=== PATIENT | female | born 1950 | race Hispanic/Latino ===

== ENCOUNTER 2017-05-07 09:40 | Day surgery (SDC) | payer BC, MEDICARE ==
[2017-05-04 09:06] VITALS: BMI 24.4
[2017-05-07 10:13] LABS: BASO # 0.09 K/mm3 (0.0-2.0); BASO % 0.6 % (0.0-3.0); EOS # 0.2 (0.0-0.7); EOS % 1.3 % (1.5-5.0); GRAN # 8.15 (1.4-6.5); GRAN % 54.6 % (50.0-68.0); HEMOGLOBIN 14.3 g/dL (12.0-16.0); LYMPH # 5.4 (1.2-3.4); LYMPH % 36.3 % (22.0-35.0); MEAN CELL VOLUME 91.9 fl (80.0-105.0); MEAN CORPUSCULAR HEMOGLOBIN 30.4 pg (25.0-35.0); MEAN CORPUSCULAR HGB CONC 33.1 g/dl (31.0-37.0); MEAN PLATELET VOLUME 10.3 fl (7.0-11.0); MONO # 1.1 (0.1-0.6); MONO % 7.2 % (1.0-6.0); RBC 4.7 10^6/uL (3.5-6.1); RED CELL DISTRIBUTION WIDTH 13.9 % (11.5-14.5); WHITE BLOOD COUNT 14.9 10^3/ul (4.5-11.0)
[2017-05-07 10:22] LABS: BLOOD UREA NITROGEN 16 mg/dL (7-21); CALCIUM 9.5 mg/dL (8.4-10.5); GFR AFRICAN-AMERICAN > 60; GFR NON-AFRICAN AMERICAN 55
[2017-05-07 10:24] LABS: INR 1.01 (0.93-1.08); PARTIAL THROMBOPLASTIN TIME 31.6 Seconds (25.1-36.5); PROTHROMBIN TIME 11.6 SECONDS (9.4-12.5)
[2017-05-07] MEDS ORDERED: Midazolam 2 MG/2 ML VIAL ONE (11:58)
[2017-05-07] MEDS ORDERED: Oxycodone/Acetaminophen 5/325 mg Tab PO PRN (12:56)
[2017-05-07] MEDS ORDERED: Sodium Chloride 0.45% 1,000 ML IV SCH (13:00)
[2017-05-07] MEDS ORDERED: Oxycodone/Acetaminophen 5/325 mg Tab ONE (13:32)
[2017-05-07 14:34] VITALS: O2SAT 96
[2017-05-07 14:55] VITALS: BP 104/63; PULSE 75; RESP 20; TEMP 98
--- NOTE | 2017-05-07 15:09 | US ---
PROCEDURE: Ultrasound-guided left thyroid fine needle aspiration biopsy. CLINICAL HISTORY: Calcified 14 mm dominant left thyroid nodule. Evaluate for malignancy PHYSICIAN(S): Collin Epstein M.D. TECHNIQUE: The relative risks and indications for the procedure were explained to the patient and consent obtained. The patient was placed supine on the stretcher with the neck extended and preliminary sonography of the thyroid performed. This reveal a dominant 14 mm left upper pole nodule with significant rim calcification. The neck was prepped and draped in the usual sterile fashion. Conscious sedation and monitoring were provided throughout the procedure by a nurse. 1% Xylocaine was used to anesthetize the skin and soft tissues at the access site. Three passes with a 22-gauge needle were performed under ultrasound guidance for fine needle aspiration of the calcified 14 mm nodule in the left thyroid. The slides were reviewed by pathology and deemed adequate. The patient tolerated the procedure well. IMPRESSION: 1. Ultrasound guided fine needle aspiration of a 14 mm calcifiednodule in the left thyroid.
== END 2017-05-07 14:45 | disposition home or self-care (01) ==
LOC: SDS 09:40
PROVIDERS: ATTEND Radiology Vascular & Interventional Radiology
DX: E04.1 Nontoxic single thyroid nodule (principal); I10 Essential (primary) hypertension
CPT/HCPCS: 10022; 36415; 80048; 85025; 85610; 85730; 88173; 88305; J2250; J2405; J3010; J7030

== ENCOUNTER 2017-10-15 12:49 | Emergency (ER) | payer BC ==
[2017-10-15 12:50] VITALS: BMI 24.4
[2017-10-15 13:43] VITALS: RESP 18; TEMP 98.5
[2017-10-15] MEDS ORDERED: TDAP Vaccine 0.5 mL Syr IM ONE (14:04)
--- NOTE | 2017-10-15 14:19 | ED PDOC ---
Arrival/HPI - General Chief Complaint: Finger,Hand,&Wrist Time Seen by Provider: 10/15/17 13:55 Historian: Patient - History of Present Illness Narrative History of Present Illness (Text): 10/15/17 14:13 Pt is a 67 yr old female who is asplenic who presents to the ED with a cut to her right thumb on the dorsal side 1 day ago. Pt states that she was using a dirty razor to scrape a surface at home when it slipped and cut her thumb over the joint. Pt reports that it bled for awhile after cleaning it with soap and water then applied a paper towel and duct tape. Pt worries that she needs tetanus and infection as she is prone to infections. Denies fever, chills, loss of motor function or sensation, or any other complaints. Time/Duration: 24 hours Symptom Onset: Sudden Symptom Course: Improving Quality: Unable to Describe Severity Level: 3 Activities at Onset: Rest Context: Home Past Medical History - Provider Review Nursing Documentation Reviewed: Yes - Travel History Have you recently traveled outside [place] w/in the past 3 mons?: No - Cardiac Hx Pacemaker: No - Pulmonary Hx Asthma: No Hx Chronic Obstructive Pulmonary Disease (COPD): No Hx Emphysema: No - Neurological Hx Paralysis: No - Renal Hx Renal Disorder: No - Hematological/Oncological Hx Blood Transfusions: No - Musculoskeletal/Rheumatological Hx Musculoskeletal Disorders: No - Gastrointestinal Hx Gastroesophageal Reflux: No Hx Pancreatitis: Yes - Psychiatric Hx Anxiety: Yes Hx Emotional Abuse: No Hx Physical Abuse: No Hx Substance Use: No - Surgical History Hx Cholecystectomy: Yes Hx Splenectomy: Yes - Anesthesia Hx Anesthesia Reactions: No Hx Malignant Hyperthermia: No - Suicidal Assessment Feels Threatened In Home Enviroment: No Family/Social History - Physician Review Nursing Documentation Reviewed: Yes Family/Social History: Unknown Family HX Smoking Status: Heavy Smoker > 10 Cigarettes Daily Hx Alcohol Use: No Hx Substance Use: No Hx Substance Use Treatment: No Allergies/Home Meds Allergies/Adverse Reactions: Allergies Penicillins Allergy (Severe, Verified 10/15/17 14:00) RASH codeine Adverse Reaction (Severe, Verified 10/15/17 14:00) "JUMPY" tramadol Adverse Reaction (Severe, Verified 10/15/17 14:00) "JUMPY" Home Medications: Home Meds Medication Instructions Recorded Confirmed Amlodipine/Valsartan [Exforge 10 1 tab PO DAILY 06/25/13 05/07/17 mg-160 mg] ALPRAZolam [Xanax] 1 mg PO BID 05/04/17 05/07/17 Ibuprofen [Motrin] 600 mg PO PRN PRN 05/04/17 05/07/17 Review of Systems - Review of Systems Constitutional: Normal Eyes: Normal ENT: Normal Respiratory: Normal Cardiovascular: Normal Gastrointestinal: Normal Genitourinary Female: Normal Musculoskeletal: Normal Skin: Normal, Laceration (right thumb laceration on the dorsal side) Neurological: Normal Endocrine: Normal Hemo/Lymphatic: Normal Psychiatric: Normal Physical Exam Vital Signs Reviewed: Yes Vital Signs Temp Pulse Resp BP Pulse Ox 10/15/17 16:00 68 18 128/68 98 10/15/17 15:16 68 18 118/68 99 10/15/17 13:43 98.5 F 72 18 123/72 99 Temperature: Afebrile Blood Pressure: Normal Pulse: Regular Respiratory Rate: Normal Appearance: Positive for: Well-Appearing, Non-Toxic, Comfortable Pain Distress: None Mental Status: Positive for: Alert and Oriented X 3 - Systems Exam Head: Present: Atraumatic, Normocephalic Pupils: Present: PERRL Extroacular Muscles: Present: EOMI Conjunctiva: Present: Normal Mouth: Present: Moist Mucous Membranes Neck: Present: Normal Range of Motion Respiratory/Chest: Present: Clear to Auscultation, Good Air Exchange. No: Respiratory Distress, Accessory Muscle Use Cardiovascular: Present: Regular Rate and Rhythm, Normal S1, S2. No: Murmurs Abdomen: Present: Normal Bowel Sounds. No: Tenderness, Distention, Peritoneal Signs Back: Present: Normal Inspection Upper Extremity: Present: Normal Inspection, Normal ROM, NORMAL PULSES, Tenderness, Neurovascularly Intact, Capillary Refill < 2s. No: Cyanosis, Edema Lower Extremity: Present: Normal Inspection. No: Edema Neurological: Present: GCS=15, CN II-XII Intact, Speech Normal, Motor Func Grossly Intact, Normal Sensory Function Skin: Present: Warm, Dry, Normal Color, Laceration (right dorsal aspect thumb over carpometacarpal jt approx 1cm). No: Rashes Psychiatric: Present: Alert, Oriented x 3, Normal Insight, Normal Concentration Medical Decision Making ED Course and Treatment: 10/15/17 14:19 Impression Pt is a 67 yr old female who is asplenic who presents to the ED with a cut to her right thumb on the dorsal side 1 day ago. Plan Tetanus and clindamycin PO Lac repair assess and dispo Progress note 10/15/17 14:41 tetanus and cleocin stat lidocaine ordered for infiltration 10/15/17 21:08 lac repair completed with 4 sutures using 4.0 nylon pt tolerated procedure well with minimal blood loss 3 steri strips and dressing placed clindamycin and tetanus booster given advised to have sutures removed in 7 days by PMD or return to ED Take Rx given until complete 10/15/17 21:13 - Medication Orders Current Medication Orders: Discontinued Medications Clindamycin HCl (Cleocin) 300 mg PO STAT STA PRN Reason: Protocol Stop: 10/15/17 14:12 Last Admin: 10/15/17 14:21 Dose: 300 mg Lidocaine HCl (Lidocaine 1% (20ml)) 20 ml IJ STAT STA Stop: 10/15/17 14:41 Last Admin: 10/15/17 14:48 Dose: 20 ml Tetanus/Reduced Diphtheria/Acell Pertussis (Boostrix Vaccine Inj) 0.5 ml IM .ONCE ONE Stop: 10/15/17 14:05 Last Admin: 10/15/17 14:24 Dose: 0.5 ml Immunization Registry Document 10/15/17 14:24 HOLLY (Rec: 10/15/17 14:24 HOLLY [id number]) Immunization Registry Consent Date 06/27/17 - Procedure PROCEDURE NOTE (Text): 10/15/17 14:43 Performed by the emergency provider Location: Left dorsal thumb Length: ~1 cm Description: "clean wound edges and no foreign bodies"} Distal CMS: ~Normal.~ No deficits.~ Neurovascularly intact. Anesthesia: Lidocaine 1% 3cc Preparation: The wound was cleaned with NS and [place]. The area was prepped and draped in the usual sterile fashion.~ Exploration: ~ The wound was explored and no foreign bodies were found. Procedure: The wound was closed with 4.0 nylon.~ There was good approximation.~ In total, 4 were used. Post-Procedure: ~Good closure and hemostasis.~ The patient tolerated the procedure well and there were no complications.~ CSM remains intact.~ Post procedure dressing applied. Disposition/Present on Arrival - Present on Arrival Any Indicators Present on Arrival: Yes History of DVT/PE: No History of Uncontrolled Diabetes: No Urinary Catheter: No History of Decub. Ulcer: No History Surgical Site Infection Following: None - Disposition Have Diagnosis and Disposition been Completed?: Yes Diagnosis: Laceration of thumb without complication Disposition: HOME/ ROUTINE Disposition Time: 15:38 Patient Plan: Discharge Condition: GOOD Discharge Instructions (ExitCare): Wound Care (DC), Laceration Repair With Stitches (DC) Additional Instructions: EMILY LAMBERT, thank you for letting us take care of you today. Your provider was Arcenio Banks DO and SHIMA Mae and you were treated for LACERATON TO THUMB. The emergency medical care you received today was directed at your acute symptoms. If you were prescribed any medication, please fill it and take as directed. It may take several days for your symptoms to resolve. Return to the Emergency Department if your symptoms worsen, do not improve, or if you have any other problems. PLEASE HAVE THE SUTURES REMOVED IN 7-10 DAYS. TAKE CLEOCIN CAPSULES DIRECTED; KEEP THE WOUND CLEAN AND DRY Please contact your doctor or call one of the physicians/clinics you have been referred to that are listed on the Patient Visit Information form that is included in your discharge packet. Bring any paperwork you were given at discharge with you along with any medications you are taking to your follow up visit. Our treatment cannot replace ongoing medical care by a primary care provider outside of the emergency department. Thank you for allowing the [facility] team to be part of your care today. Prescriptions: Clindamycin [Cleocin] 300 mg PO Q6 5 Days #20 cap Forms: [employer] (Kinyarwanda), WORK NOTE
[2017-10-15] MEDS ORDERED: Lidocaine 1% Inj (20ml) IJ STA (14:40)
[2017-10-15 15:17] VITALS: PULSE 68
[2017-10-15 16:15] VITALS: BP 128/68; O2SAT 98
== END 2017-10-15 16:00 | disposition home or self-care (01) ==
LOC: ED 12:49
DX: S61.011A Laceration without foreign body of right thumb without damage to nail, initial encounter (principal); W27.8XXA Contact with other nonpowered hand tool, initial encounter; Y92.009 Unspecified place in unspecified non-institutional (private) residence as the place of occurrence of the external cause; Z23 Encounter for immunization

== ENCOUNTER 2017-11-26 06:05 | Inpatient (IN) | payer BC ==
[2017-11-26 06:05] VITALS: BMI 24.4
[2017-11-26] MEDS ORDERED: Nitroglycerin 50mg in D5W 50 MG/250 ML BOTTLE IV PRN (06:17)
--- NOTE | 2017-11-26 06:18 | ED PDOC ---
Arrival/HPI - General Time Seen by Provider: 11/26/17 06:11 Historian: Patient, EMS - Critical Care Critical Care Minutes: 30 minutes - History of Present Illness Narrative History of Present Illness (Text): 11/26/17 06:09 Ailyn العراقي is a 67 year old female, whose past medical history includes hypertension and tobacco abuse, who presents to the Emergency department brought in by ALS complaining of chest pain. Patient states she was sitting at home playing a game on her phone 2 hours prior to arrival when she began experiencing worsening mid-sternal chest pressure. Patient notified EMS and was given 324 mg Aspirin and nitropaste in the field. Patient reports a family history of CAD and SC. Patient denies any shortness of breath, fever, chills, abdominal pain, or any other complaints. PMD: Dr. Banegas Time/Duration: 1-3 hours (2 hours) Symptom Onset: Sudden Symptom Course: Unchanged Activities at Onset: Light Context: Home Past Medical History - Provider Review Nursing Documentation Reviewed: Yes - Cardiac Hx Pacemaker: No - Pulmonary Hx Asthma: No Hx Chronic Obstructive Pulmonary Disease (COPD): No Hx Emphysema: No - Neurological Hx Paralysis: No - Renal Hx Renal Disorder: No - Hematological/Oncological Hx Blood Transfusions: No - Musculoskeletal/Rheumatological Hx Musculoskeletal Disorders: No - Gastrointestinal Hx Gastroesophageal Reflux: No Hx Pancreatitis: Yes - Psychiatric Hx Anxiety: Yes Hx Emotional Abuse: No Hx Physical Abuse: No Hx Substance Use: No - Surgical History Hx Cholecystectomy: Yes Hx Splenectomy: Yes - Anesthesia Hx Anesthesia Reactions: No Hx Malignant Hyperthermia: No - Suicidal Assessment Feels Threatened In Home Enviroment: No Family/Social History - Physician Review Nursing Documentation Reviewed: Yes Family/Social History: CAD/SC Smoking Status: Heavy Smoker > 10 Cigarettes Daily Hx Alcohol Use: No Hx Substance Use: No Hx Substance Use Treatment: No Allergies/Home Meds Allergies/Adverse Reactions: Allergies Penicillins Allergy (Severe, Verified 11/26/17 06:08) RASH codeine Adverse Reaction (Severe, Verified 11/26/17 06:08) "JUMPY" tramadol Adverse Reaction (Severe, Verified 11/26/17 06:08) "JUMPY" Home Medications: Home Meds Medication Instructions Recorded Confirmed Amlodipine/Valsartan [Exforge 10 1 tab PO DAILY 06/25/13 11/26/17 mg-160 mg] ALPRAZolam [Xanax] 1 mg PO BID 05/04/17 11/26/17 Review of Systems - Physician Review All systems were reviewed & negative as marked: Yes - Review of Systems Constitutional: Normal. absent: Fevers Eyes: Normal ENT: Normal Respiratory: Normal. absent: SOB, Cough Cardiovascular: Chest Pain Gastrointestinal: Normal. absent: Abdominal Pain, Diarrhea, Nausea, Vomiting Genitourinary Female: Normal. absent: Dysuria, Frequency, Hematuria, Urine Output Changes Musculoskeletal: Normal. absent: Back Pain, Neck Pain Skin: Normal. absent: Rash Neurological: Normal. absent: Headache, Dizziness Endocrine: Normal Hemo/Lymphatic: Normal Psychiatric: Normal Physical Exam Vital Signs Reviewed: Yes Vital Signs Temp Pulse Resp BP Pulse Ox 11/26/17 06:34 82 16 136/78 99 11/26/17 06:31 81 140/90 11/26/17 06:28 81 140/90 11/26/17 06:25 69 16 139/106 H 99 11/26/17 06:21 68 16 140/90 100 11/26/17 06:17 93 H 16 114/41 L 100 11/26/17 06:05 97.5 F L 92 H 16 158/121 H 98 Temperature: Afebrile Blood Pressure: Hypertensive Pulse: Regular Respiratory Rate: Normal Appearance: Positive for: Non-Toxic Mental Status: Positive for: Alert and Oriented X 3 - Systems Exam Head: Present: Atraumatic, Normocephalic Pupils: Present: PERRL Extroacular Muscles: Present: EOMI Conjunctiva: Present: Normal Mouth: Present: Moist Mucous Membranes Neck: Present: Normal Range of Motion. No: Meningeal Signs, MIDLINE TENDERNESS , Paraspinal Tenderness Respiratory/Chest: Present: Clear to Auscultation, Good Air Exchange. No: Respiratory Distress, Accessory Muscle Use Cardiovascular: Present: Regular Rate and Rhythm, Normal S1, S2. No: Murmurs Abdomen: No: Tenderness, Distention, Peritoneal Signs Back: Present: Normal Inspection. No: CVA Tenderness, Midline Tenderness, Paraspinal Tenderness Upper Extremity: Present: Normal Inspection. No: Cyanosis, Edema Lower Extremity: Present: Normal Inspection. No: Edema Neurological: Present: GCS=15, CN II-XII Intact, Speech Normal Skin: Present: Warm, Dry, Normal Color. No: Rashes Psychiatric: Present: Alert, Oriented x 3, Normal Insight, Normal Concentration Medical Decision Making ED Course and Treatment: 11/26/17 06:10 Impression: 67 year old female presents to the Emergency department brought in by EMS for mid-sternal chest pressure x2 hours. Plan: -- EKG -- Chest X-ray -- Labs, cardiac enzymes -- Lopressor -- Nitroglycerin -- Reassess and disposition Progress Notes: 11/26/17 06:10 Pt seen on arrival to Emergency department. EKG reviewed, shows NSR at [address] elevation and ST changes inferiorly. Code Heart called, interventionalist paged. 11/26/17 06:13 Case discussed and EKG reviewed with Dr. Hercules, neurosurgery research director communication specialist, who is aware and agrees pt is a Code Heart and requests pt receive Heparin bolus and Brilinta. 11/26/17 06:23 Chest X-ray reviewed, shows no acute processes. 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 11/26/17 06:[address] Banegas, pt's PMD, who is aware and agrees with plan. Accepts pt in to his service. - Lab Interpretations Lab Results: 11/26/17 06:17 11/26/17 06:17 Lab Results 11/26/17 06:17: WBC 16.1 H, RBC 5.11, Hgb 15.8, Hct 44.8, MCV 87.7 D, MCH 30.9 , MCHC 35.3, RDW 13.9, Plt Count 494 H, MPV 10.3 11/26/17 06:17: Sodium 142, Potassium 3.5 L, Chloride 105, Carbon Dioxide 22, Anion Gap 18, BUN 19, Creatinine 1.0, Est GFR ( Amer) > 60, Est GFR (Non- Af Amer) 55, Random Glucose 164 H, Calcium 9.4, Total Bilirubin 0.5, AST 33, ALT 23, Alkaline Phosphatase 106, Lactate Dehydrogenase 410, Total Creatine Kinase 138, Troponin I Pending, Total Protein 9.2 H, Albumin 4.6, Globulin 4.6, Albumin/Globulin Ratio 1.0 L 11/26/17 06:17: PT 11.3, INR 0.98, APTT 29.0 I have reviewed the lab results: Yes - RAD Interpretation Radiology Orders: 11/26/17 06:19 CHEST PORTABLE [RAD] Stat Development Administrator: ED Physician - EKG Interpretation Interpreted by ED Physician: Yes Type: 12 lead EKG - Medication Orders Current Medication Orders: Nitroglycerin/Dextrose (Nitroglycerin 50 Mg/250 Ml D5w) 50 mg in 250 mls @ 6 mls/hr IV .Q24H PRN; Protocol; 20 MCG/MIN PRN Reason: Titrate per protocol Last Admin: 11/26/17 06:28 Dose: 6 mls/hr eMAR Start Stop Document 11/26/17 06:28 LAC (Rec: 11/26/17 06:33 LAC [id number]) Intravenous Solution Start Date 11/26/17 Start Time 06:28 JUN Pulse and Blood Pressure Document 11/26/17 06:28 LAC (Rec: 11/26/17 06:33 LAC [id number]) Pulse Pulse Rate (60-90 beats/min) 81 Blood Pressure Blood Pressure (100/60-150/90 mm Hg) 140/90 Discontinued Medications Heparin Sodium (Porcine) (Heparin) 5,000 units IV ONCE STA PRN Reason: Protocol Stop: 11/26/17 06:17 Last Admin: 11/26/17 06:17 Dose: 5,000 units eMAR Start Stop Document 11/26/17 06:17 LAC (Rec: 11/26/17 06:20 LAC [id number]) Intravenous Solution Start Date 11/26/17 Start Time 06:17 Metoprolol Tartrate (Lopressor) 5 mg IVP STAT STA Stop: 11/26/17 06:21 Last Admin: 11/26/17 06:31 Dose: 5 mg IVP Administration Document 11/26/17 06:31 LAC (Rec: 11/26/17 06:31 LAC [id number]) Charges for Administration # of IVP Administrations 1 MAR Pulse and Blood Pressure Document 11/26/17 06:31 LAC (Rec: 11/26/17 06:31 LAC [id number]) Pulse Pulse Rate (60-90 beats/min) 81 Blood Pressure Blood Pressure (100/60-150/90 mm Hg) 140/90 Ticagrelor (Brilinta) 180 mg PO STAT STA Stop: 11/26/17 06:17 Last Admin: 11/26/17 06:21 Dose: 180 mg - Scribe Statement The provider has reviewed the documentation as recorded by the Joan Cowan Provider Joan Attestation: All medical record entries made by the Joan were at my direction and personally dictated by me. I have reviewed the chart and agree that the record accurately reflects my personal performance of the history, physical exam, medical decision making, and the department course for this patient. I have also personally directed, reviewed, and agree with the discharge instructions and disposition. Disposition/Present on Arrival - Present on Arrival Any Indicators Present on Arrival: No History of DVT/PE: No History of Uncontrolled Diabetes: No Urinary Catheter: No History of Decub. Ulcer: No History Surgical Site Infection Following: None - Disposition Have Diagnosis and Disposition been Completed?: Yes Diagnosis: Acute SC Disposition: HOSPITALIZED Disposition Time: 06:38 Patient Plan: Admission Patient Problems: Current Active Problems Problem Status Onset Acute SC Acute Condition: GUARDED
[2017-11-26] MEDS ORDERED: Phenylephrine 10 mg/ml Inj ONE (06:20)
[2017-11-26] MEDS ORDERED: Metoprolol 1 mg/ml Inj IVP STA (06:20)
[2017-11-26] MEDS ORDERED: Midazolam 2 MG/2 ML VIAL ONE ×2 (06:22→07:12)
[2017-11-26] MEDS ORDERED: Iohexol 350mgl/ml 50 ML ONE (06:23)
[2017-11-26] MEDS ORDERED: Iodixanol 320 MG/ML 100 ML BOTTLE IV ONE (06:23)
[2017-11-26] MEDS ORDERED: Nitroglycerin 50mg in D5W 50 MG/250 ML BOTTLE IV ONE (06:23)
[2017-11-26] MEDS ORDERED: Iodixanol 320 MG/ML 200 ML BOTTLE IV ONE (06:23)
[2017-11-26 06:26] LABS: HEMOGLOBIN 15.8 g/dL (12.0-16.0); MEAN CORPUSCULAR HEMOGLOBIN 30.9 pg (25.0-35.0); MEAN CORPUSCULAR HGB CONC 35.3 g/dl (31.0-37.0); MEAN PLATELET VOLUME 10.3 fl (7.0-11.0); RBC 5.11 10^6/uL (3.5-6.1); RED CELL DISTRIBUTION WIDTH 13.9 % (11.5-14.5); WHITE BLOOD COUNT 16.1 10^3/ul (4.5-11.0)
[2017-11-26 06:30] LABS: INR 0.98; PROTHROMBIN TIME 11.3 SECONDS (9.4-12.5)
[2017-11-26 06:31] LABS: ALBUMIN 4.6 g/dL (3.0-4.8); ALT/SGPT 23 U/L (7-56); AST/SGOT 33 U/L (14-36); BLOOD UREA NITROGEN 19 mg/dL (7-21); CALCIUM 9.4 mg/dL (8.4-10.5); GFR AFRICAN-AMERICAN > 60; GFR NON-AFRICAN AMERICAN 55
[2017-11-26 06:32] LABS: MEAN CELL VOLUME 87.7 fl (80.0-105.0)
[2017-11-26] MEDS ORDERED: Lidocaine PF 2% (5 ml) Inj (For Cardiac Arrhy) ONE (06:37)
--- NOTE | 2017-11-26 06:44 | CP.PCM.PN ---
Subjective - Date & Time of Evaluation Date of Evaluation: 11/26/17 Time of Evaluation: 06:44 Objective - Vital Signs/Intake and Output Vital Signs (last 24 hours): Temp Pulse Resp BP Pulse Ox 97.5 F L 82 16 136/78 99 11/26/17 06:05 11/26/17 06:34 11/26/17 06:34 11/26/17 06:34 11/26/17 06:34 - Medications Medications: Current Medications Nitroglycerin/Dextrose (Nitroglycerin 50 Mg/250 Ml D5w) 50 mg in 250 mls @ 6 mls/hr IV .Q24H PRN; Protocol; 20 MCG/MIN PRN Reason: Titrate per protocol Last Admin: 11/26/17 06:28 Dose: 6 mls/hr - Labs Labs: 11/26/17 06:17 11/26/17 06:17 PT 11.3 SECONDS (9.4-12.5) 11/26/17 06:17 INR 0.98 11/26/17 06:17 APTT 29.0 Seconds (25.1-36.5) 11/26/17 06:17
[2017-11-26] MEDS ORDERED: Eptifibatide 20 mg/10mL Inj IVP ONE (07:27)
[2017-11-26] MEDS ORDERED: Eptifibatide 0.75 mg/ml 75 MG/100 ML BOTTLE IV ONE (07:31)
[2017-11-26] MEDS ORDERED: Sodium Chloride 0.9% 1,000 ML IV SCH (08:15)
[2017-11-26 08:27] LABS: LDL CHOLESTEROL 230 mg/dL (0-129)
[2017-11-26] MEDS ORDERED: Potassium Chloride 20 mEq ER Tab PO STA (08:27)
[2017-11-26 08:28] LABS: HDL CHOLESTEROL 41 mg/dL (29-60)
[2017-11-26 08:44] LABS: PH,URINE 5.5 (4.7-8.0); URINE APPEARANCE CLEAR (CLEAR); URINE BILIRUBIN NEGATIVE (NEGATIVE); URINE BLOOD LARGE (NEGATIVE); URINE COLOR LIGHT YELLOW (YELLOW); URINE GLUCOSE (UA) NEGATIVE (NEGATIVE); URINE LEUKOCYTE ESTERASE NEGATIVE Leu/uL (NEGATIVE); URINE PROTEIN NEGATIVE mg/dL (<30 mg/dL); URINE UROBILINOGEN 0.2 E.U./dL (<1 E.U./dL)
--- NOTE | 2017-11-26 08:45 | CPOSTOP ---
Copied To: Jostin Murry MD Attending MD: Jostin Murry MD DATE: 11/26/2017 CARDIOVASCULAR LAB POST PROCEDURE NOTE DICTATING PHYSICIAN: Jostin Murry MD. DRIVER MANAGER: Issa Tipton. TYPE OF ANESTHESIA: Moderate conscious sedation. Total dose given 2 mg of Versed, 100 of fentanyl. PRE-PROCEDURE DIAGNOSIS: Acute ST-segment myocardial infarction. PROCEDURE PERFORMED: Left heart catheterization, stenting of LAD, stenting of circumflex. FINDINGS: LAD 100% occluded, mid circ 90% proximal, RCA total occluded [employer]. FINAL DIAGNOSIS: Multivessel coronary artery disease. POST PROCEDURE CONDITION: Stable. VASCULAR ACCESS: Right femoral groin. TOTAL RADIATION DOSE: 9997.5 milligray unit. TOTAL FLUORO TIME: 14.6 minutes. Jostin Murry MD MTDJohn
[2017-11-26 09:05] LABS: URINE BACTERIA SMALL (NEG); URINE WBC 0 - 2 /hpf (0-6)
[2017-11-26] MEDS ORDERED: Potassium Chloride 40 mEq/30 ml LIQ UD PO ONE (09:11)
[2017-11-26] MEDS: Lidocaine 5% Patch TD SCH (10:18)
--- NOTE | 2017-11-26 10:56 | RAD ---
Date of service: 11/26/2017 HISTORY: Chest pain COMPARISON: No prior. FINDINGS: LUNGS: No active pulmonary disease. PLEURA: No significant pleural effusion identified, no pneumothorax apparent. CARDIOVASCULAR: No radiographic findings to suggest acute or significant cardiovascular disease. OSSEOUS STRUCTURES: No significant abnormalities. VISUALIZED UPPER ABDOMEN: Normal. OTHER FINDINGS: None. IMPRESSION: No active disease.
--- NOTE | 2017-11-26 11:32 | CARD ---
APPROVED REPORT Date of service: 11/26/2017 EKG Measurement Heart [id number] <Conclusion> Normal sinus rhythm Possible Left atrial enlargement Anterolateral infarct, age Probably Old. Abnormal ECG
--- NOTE | 2017-11-26 11:37 | CP.PCM.CON ---
<ValentinRubén - Last Filed: 11/26/17 15:21> History of Present Illness - History of Present Illness History of Present Illness: ICU consult note: Valentin PGY - 2, IM Resident Reason for consult: Post-catheterization management HPI: 67 year old female with pertinent medical history of significant tobacco abuse presented with chest pain for 2 hours at home. In the ED, EKG showed lateral lead TINY with reciprocal changes in the inferior leads as well as troponin of .5. Patient was taken to [address] with placement of IKE in midCirc and LAD. Patient denies any complaints including chest pain, sob, and cath site tenderness on exam. Review of Systems: 12 point ROS obtained and negative, except as per HPI Surgical History: Patient denies Medical History: HTN, Anxiety Allergies: PCN, Codeine, Tramadol Social History: +Tobacco; +Social alcohol; Denies illicits Home Meds: Reviewed, as per MAR Family History: HTN Past Patient History - Past Social History Smoking Status: Heavy Smoker > 10 Cigarettes Daily - CARDIAC Hx Pacemaker: No - PULMONARY Hx Asthma: No Hx Chronic Obstructive Pulmonary Disease (COPD): No Hx Emphysema: No - NEUROLOGICAL Hx Paralysis: No - RENAL Hx Chronic Kidney Disease: No - HEMATOLOGICAL/ONCOLOGICAL Hx Blood Transfusions: No - MUSCULOSKELETAL/RHEUMATOLOGICAL Hx Musculoskeletal Disorders: No - GASTROINTESTINAL Hx Gastroesophageal Reflux: No Hx Pancreatitis: Yes - PSYCHIATRIC Hx Anxiety: Yes Hx Emotional Abuse: No Hx Physical Abuse: No Hx Substance Use: No - SURGICAL HISTORY Hx Cholecystectomy: Yes Hx Splenectomy: Yes - ANESTHESIA Hx Anesthesia Reactions: No Hx Malignant Hyperthermia: No Meds Allergies/Adverse Reactions: Allergies Allergy/AdvReac Type Severity Reaction Status Date / Time Penicillins Allergy Severe RASH Verified 11/26/17 06:08 codeine AdvReac Severe "JUMPY" Verified 11/26/17 06:08 tramadol AdvReac Severe "JUMPY" Verified 11/26/17 06:08 - Medications Medications: Current Medications Aspirin (Ecotrin) 81 mg PO DAILY [facility] Atorvastatin Calcium (Lipitor) 80 mg PO DIN [facility] Furosemide (Lasix) 40 mg PO DAILY [facility] Last Admin: 11/26/17 10:18 Dose: 40 mg Sodium Chloride (Sodium Chloride 0.9%) 1,000 mls @ 100 mls/hr IV .Q10H JESSICA Stop: 11/26/17 14:00 Last Admin: 11/26/17 08:43 Dose: 100 mls/hr Eptifibatide (Integrilin) 75 mg in 100 mls @ 9.389 mls/hr IV .[id number] [facility]; 2 MCG/KG/MIN PRN Reason: Protocol Stop: 11/27/17 01:30 Lidocaine (Lidoderm) 1 ea TD DAILY [facility] Last Admin: 11/26/17 10:18 Dose: 1 ea Lisinopril (Zestril) 10 mg PO DAILY [facility] Last Admin: 11/26/17 10:20 Dose: 10 mg Metoprolol Tartrate (Lopressor) 25 mg PO BID [facility] Last Admin: 11/26/17 10:19 Dose: 25 mg Nicotine (Nicoderm Cq) 1 patch TD DAILY [facility] Last Admin: 11/26/17 10:18 Dose: 1 patch Spironolactone (Aldactone) 25 mg PO DAILY [facility] Last Admin: 11/26/17 10:19 Dose: 25 mg Ticagrelor (Brilinta) 90 mg PO BID [facility] Physical Exam - Constitutional Appears: Well - Head Exam Head Exam: ATRAUMATIC, NORMAL INSPECTION, NORMOCEPHALIC - Eye Exam Eye Exam: EOMI, Normal appearance, PERRL Pupil Exam: NORMAL ACCOMODATION, PERRL - ENT Exam ENT Exam: Mucous Membranes Moist, Normal Exam - Neck Exam Neck exam: Positive for: Normal Inspection - Respiratory Exam Respiratory Exam: Clear to Auscultation Bilateral, NORMAL BREATHING PATTERN - Cardiovascular Exam Cardiovascular Exam: REGULAR RHYTHM - GI/Abdominal Exam GI & Abdominal Exam: Normal Bowel Sounds, Soft. absent: Tenderness - Extremities Exam Extremities exam: Positive for: normal inspection - Back Exam Back exam: NORMAL INSPECTION - Neurological Exam Neurological exam: Alert, CN II-XII Intact, Normal Gait, Oriented x3, Reflexes Normal - Psychiatric Exam Psychiatric exam: Normal Affect, Normal Mood - Skin Skin Exam: Dry, Intact, Normal Color, Warm Results - Vital Signs Recent Vital Signs: Last Vital Signs Temp 97.5 F L 11/26/17 06:05 Pulse 73 11/26/17 10:20 Resp 16 11/26/17 06:34 BP 119/76 11/26/17 10:20 Pulse Ox 99 11/26/17 06:34 - Labs Result Diagrams: 11/26/17 12:45 11/26/17 12:45 Labs: Laboratory Results - last 24 hr 08/13/18 08:36 Urine Color Light yellow Urine Appearance Clear Urine pH 5.5 Ur Specific [place] <= 1.005 Urine Protein Negative Urine Glucose (UA) Negative Urine Ketones Negative Urine Blood Large H Urine Nitrate Negative Urine Bilirubin Negative Urine Urobilinogen 0.2 Ur Leukocyte Esterase Negative Urine RBC 10 - 15 Urine WBC 0 - 2 Ur Epithelial Cells 3 - 4 Urine Bacteria Small Assessment & Plan - Assessment and Plan (Free Text) Assessment: 67 year old female under ICU mgmt for post-catheterization monitoring 1. Acute NSTEMI 2. Hx tobacco abuse 3. Anxiety Plan Neuro - Maintain normothermia - Continue home dose alprazolam for anxiety Pulm - Nasal cannula 2L PRN for SOB - Maintain sat O2 > 92% Cardio - Continue with SAMIA-I, B-Blockers, Statin, DAPT; discontinue integrillin drip 18 hours after procedure - HHD - Maintain MAP > 65 - Assess pulses, cath site, and vitals as per orders GI - Continue with HHD - Continue with GI PPX - Maintain euvolemia ID - No ABx needed at this time Endo - Maintain euglycemia Heme - Leave DVT PPX up to cardiology <Arcenio Barrera - Last Filed: 11/26/17 15:50> Meds - Medications Medications: Current Medications Aspirin (Ecotrin) 81 mg PO DAILY [facility] Atorvastatin Calcium (Lipitor) 80 mg PO DIN [facility] Furosemide (Lasix) 40 mg PO DAILY [facility] Last Admin: 11/26/17 10:18 Dose: 40 mg Eptifibatide (Integrilin) 75 mg in 100 mls @ 9.389 mls/hr IV .[id number] [facility]; 2 MCG/KG/MIN PRN Reason: Protocol Stop: 11/27/17 01:30 Lidocaine (Lidoderm) 1 ea TD DAILY [facility] Last Admin: 11/26/17 10:18 Dose: 1 ea Lisinopril (Zestril) 10 mg PO DAILY [facility] Last Admin: 11/26/17 10:20 Dose: 10 mg Metoprolol Tartrate (Lopressor) 25 mg PO BID [facility] Last Admin: 11/26/17 10:19 Dose: 25 mg Nicotine (Nicoderm Cq) 1 patch TD DAILY [facility] Last Admin: 11/26/17 10:18 Dose: 1 patch Spironolactone (Aldactone) 25 mg PO DAILY [facility] Last Admin: 11/26/17 10:19 Dose: 25 mg Ticagrelor (Brilinta) 90 mg PO BID [facility] Results - Vital Signs Recent Vital Signs: Last Vital Signs Temp 97.5 F L 11/26/17 06:05 Pulse 69 11/26/17 14:30 Resp 14 11/26/17 14:30 BP 98/51 L 11/26/17 14:30 Pulse Ox 100 11/26/17 14:30 - Labs Result Diagrams: 11/26/17 12:45 11/26/17 12:45 Labs: Laboratory Results - last 24 hr 11/26/17 11/26/17 11/26/17 08:36 12:45 12:45 WBC 18.1 H RBC 4.80 Hgb 14.5 Hct 42.5 MCV 88.5 MCH 30.2 MCHC 34.1 RDW 14.0 Plt Count 482 H MPV 10.0 Gran % 80.0 H Lymph % (Auto) 13.6 L [place] % (Auto) 6.1 H Eos % (Auto) 0.1 L Baso % (Auto) 0.2 Gran # 14.50 H Lymph # (Auto) 2.5 [place] # (Auto) 1.1 H Eos # (Auto) 0.0 Baso # (Auto) 0.04 Sodium 143 Potassium 4.3 Chloride 102 Carbon Dioxide 29 Anion Gap 16 BUN 19 Creatinine 0.9 Est GFR ( Amer) > 60 Est GFR (Non-Af Amer) > 60 Random Glucose 107 Calcium 9.3 Lactate Dehydrogenase 1136 H Total Creatine Kinase 1571 H CK-MB (CK-2) 163.0 H CK-MB (CK-2) % 10.4 H Troponin I 92.30 H* D Urine Color Light yellow Urine Appearance Clear Urine pH 5.5 Ur Specific [place] <= 1.005 Urine Protein Negative Urine Glucose (UA) Negative Urine Ketones Negative Urine Blood Large H Urine Nitrate Negative Urine Bilirubin Negative Urine Urobilinogen 0.2 Ur Leukocyte Esterase Negative Urine RBC 10 - 15 Urine WBC 0 - 2 Ur Epithelial Cells 3 - 4 Urine Bacteria Small Attending/Attestation - Attestation I have personally seen and examined this patient.: Yes I have fully participated in the care of the patient.: Yes I have reviewed all pertinent clinical information: Yes Notes (Text): 08/13/18 15:47 The patient was seen and examined at the bedside. Patient care was discussed with resident Medical records, lab studies, and imaging were reviewed and management issues were discussed and formulated. Agree with above treatment plans as outlined in 's note with addition of the following: STEMI \\ -hemodynamic monitoring to maintain MAP>65 -f\\u ECho; f\\u serial CE and ECG -continue ACS medications (Asa, Brilinta, Statin , BBlocker and SAMIA) as per cardiology team who are following -s\\p PCI to LAD and circumflexc arteries -continue integrillin drip and monitor for bleeding -o2 supplementation to maintain Spo2>90 Pao2>60; currently comfortable on NC -f\\u Bun\\Cr and U\\o; continue NS to prevent contrast nephropathy -PO diet (cardiac ) and aspiration precautions -LE pulse checks -DVT \\ PUD prophylaxis -Smoking cessation guidance CCM eval 25min
--- NOTE | 2017-11-26 11:37 | CARD ---
APPROVED REPORT Date of service: 11/26/2017 EKG Measurement Heart [id number] <Conclusion> Normal sinus rhythm Possible Left atrial enlargement Rightward axis Anteroseptal infarct, possibly acute Lateral injury pattern ACUTE [place] Abnormal ECG
[2017-11-26 12:55] LABS: BASO # 0.04 K/mm3 (0.0-2.0); BASO % 0.2 % (0.0-3.0); EOS % 0.1 % (1.5-5.0); GRAN # 14.5 (1.4-6.5); HEMOGLOBIN 14.5 g/dL (12.0-16.0); LYMPH # 2.5 (1.2-3.4); LYMPH % 13.6 % (22.0-35.0); MEAN CELL VOLUME 88.5 fl (80.0-105.0); MEAN CORPUSCULAR HEMOGLOBIN 30.2 pg (25.0-35.0); MEAN CORPUSCULAR HGB CONC 34.1 g/dl (31.0-37.0); MONO # 1.1 (0.1-0.6); MONO % 6.1 % (1.0-6.0); RBC 4.8 10^6/uL (3.5-6.1); WHITE BLOOD COUNT 18.1 10^3/ul (4.5-11.0)
[2017-11-26 13:05] LABS: BLOOD UREA NITROGEN 19 mg/dL (7-21); CALCIUM 9.3 mg/dL (8.4-10.5); GFR AFRICAN-AMERICAN > 60; GFR NON-AFRICAN AMERICAN > 60
[2017-11-26 13:25] LABS: CK MB% 10.4 % (2.5-3.0)
--- NOTE | 2017-11-26 15:49 | CARD ---
APPROVED REPORT Date of service: 11/26/2017 Procedure(s) performed: Left Heart Catheterization PTCA with Stenting of Mid LAD with IKE PTCA with Stenting of Proximal LAD with IKE PTCA with Stenting of Proximal Cx with IKE HISTORY The patient is a 67 year-old female with a history of : tobacco history() : The patient is a current smoker , hypertension , Admitted with Ant wall STEMI. INDICATION The indication(s) include : STEMI . CASE TECHNIQUE The patient was brought emergently to the Cardiac Catheterization Laboratory in a fasting state and was prepped and draped in a sterile manner. The right femoral groin was infiltrated with 2% Lidocaine subcutaneous anesthesia. A 6 Fr x 11 cm Apurva sheath was inserted into the right femoral artery without difficulty. Coronary angiography was performed using coronary diagnostic catheters. The left coronary system was accessed and visualized with a Diagnostic , 6F JL4 CATH DXT 100 CM catheter. The right coronary system was accessed and visualized with a Diagnostic , catheter. The left ventricle was accessed and visualized with a 6F PIGTAIL 145 CATH DXT 110 CM catheter. Left ventricular/Aortic Valve gradient assessed on pullback. Left ventriculogram was performed in ALFRED projection. Closure device was deployed with a 6 Fr / 7 Fr MynxGrip without any complications. The patient tolerated the procedure well and there were no complications associated with the procedure. Vessel Analysis The patient's coronary anatomy is right dominant. The left main coronary artery is a large size vessel with diffuse calcification noted throughout this vessel and without significant stenosis. The left main bifurcates to the left anterior descending and circumflex. The left anterior descending artery is a medium size vessel with diffuse calcification noted throughout this vessel and with significant stenosis. There is a 100% stenosis in the mid segment. proximal LAD has 80- 90% stenosis The first diagonal branch is a medium size vessel with diffuse calcification noted throughout this vessel and without significant stenosis. The circumflex artery is a medium size vessel with diffuse calcification noted throughout this vessel and with significant stenosis. There is a 90% stenosis in the proximal segment. The first obtuse marginal branch is a medium size vessel with diffuse calcification noted throughout this vessel and without significant stenosis. The second obtuse marginal branch is a medium size vessel with diffuse calcification noted throughout this vessel and without significant stenosis. The right coronary artery is a medium size vessel with diffuse calcification noted throughout this vessel and with significant stenosis. There is a 100% stenosis in the proximal segment. RCA is A CREEL CLERK, well collateralized from LAD and Cx Left Ventricle The left ventricle is border line in size with moderately decreased contractility. Ischemic cardiomyopathy. The left ventricular ejection fraction is estimated to be 35-40%. The left ventricular end diastolic pressure is 30-35 mmHg. There was no gradient across the aortic valve upon pullback. PCI Technique Lesion Anticoagulation was achieved with Heparin and Integrellin. Percutaneous coronary intervention was performed on the Mid left anterior descending artery segment. The lesion stenosis prior to intervention was 100% with MARY 0 flow. A 6 Fr XB 3 Guide Catheter was used to engage the ostium. A 0.014 x 300 cm Luge Interventional Guidewire was used to cross the lesion. BALLOON DILATION A Balloon catheter 2.0 x 12mm Sprinter OTW was inserted and inflated up to 12.00atm for 13seconds. STENT DEPLOYMENT A drug-eluting stent STENT RESOLUTE GAMALIEL 2.5 X34 was inserted and inflated up to 12.00atm for 13seconds. Final angiography reveals 0 % stenosis with MARY 3 flow. PCI Technique Lesion 2 Percutaneous Coronary Intervention was performed on the proximal LAD artery segment. The lesion stenosis prior to intervention was 90% with MARY 1 flow. A 6 Fr XB 3 Guide Catheter was used to engage the ostium. A 0.014 x 300 cm Luge Interventional Guidewire was used to cross the lesion. BALLOON DILATION A Balloon catheter 2.0 x 12mm Sprinter OTW was inserted and inflated up to 12.00atm for 10seconds. STENT DEPLOYMENT A drug-eluting stent STENT RESOLUTE GAMALIEL 2.75 X15 was inserted and inflated up to 12.00atm for 10seconds. Final angiography reveals 0 % stenosis with MARY 3 flow. PCI Technique Lesion 3 Percutaneous Coronary Intervention was performed on the proximal circumflex artery segment. The lesion stenosis prior to intervention was 90% with MARY 2 flow. A 6 Fr XB 3 Guide Catheter was used to engage the ostium. A 0.014 x 300 cm Luge Interventional Guidewire was used to cross the lesion. BALLOON DILATION A Balloon catheter was inserted and inflated up to 12atm for 15seconds. STENT DEPLOYMENT A drug-eluting stent STENT RESOLUTE GAMALIEL 2.75 X15 was inserted and inflated up to 12atm for 20seconds. POST STENT DEPLOYMENT BALLOON DILATION A Balloon catheter 3.0 x 12 mm Trek RX NC was inserted and inflated up to 12atm for 20seconds. Final angiography reveals 0 % stenosis with MARY 3 flow. Conclusion Triple Vessel CAD, LAD being the culprit for STEMI RCA is CREEL CLERK well collateralized from LAD Decreased LV FX. EF-35-40%, EDP-30-35 mmof Hg. Successful PTCA with IKE of proximal and Mid LAD, and proximal CX Recommendations Smoking Cessation Cardiac Rehabilitation Referral Aggressive Medical TherapyCardiac Risk Reduction Program Mandatory continue ASA 81 mg po daily and Brilinta 90 mg po BID. F/u Echo to assess LV Fx post PCI. CC; Sweta Couch MD
[2017-11-26] MEDS: Eptifibatide 0.75 mg/ml 75 MG/100 ML BOTTLE IV SCH ×2 (17:21→19:19)
--- NOTE | 2017-11-26 18:14 | CARD ---
APPROVED REPORT Date of service: 11/26/2017 EXAM: Two-dimensional and M-mode echocardiogram with Doppler and color Doppler. INDICATION 2D DIMENSIONS IVSd1.3 (0.7-1.1cm)LVDd3.6 (3.9-5.9cm) LVOT Diameter1.9 (1.8-2.4cm)PWd1.4 (0.7-1.1cm) LVDs3.0 (2.5-4.0cm)FS (%) 16.1 % LVEF (%)34.6 (>50%) M-Mode DIMENSIONS Left Atrium (MM)2.70 (2.5-4.0cm)Aortic Root2.80 (2.2-3.7cm) Aortic Cusp Exc.1.50 (1.5-2.0cm) Aortic Valve AoV Peak Synohsdq537.0cm/Jesse Peak GR.5mmHg Mitral Valve MV E Wisjxfjq02.7cm/sMV A Rahqjlay20.8cm/sE/A ratio0.7 TDI Lateral E' Peak V6.43cm/sMedial E' Peak V4.48cm/sE/Lateral E'9.6 E/Medial E'13.8 Tricuspid Valve TR Peak Uwbgyntk192sw/sRAP SCSOYORN56czYqYW Peak Gr.16mmHg [id number] LEFT VENTRICLE The left ventricle is normal size. There is mild concentric left ventricular hypertrophy. The systolic function is moderately impaired.EF-35-40% There is moderate to severe hypokinesis in the apical anterior wall. Transmitral Doppler flow pattern is Grade III-reversible restrictive diastolic dysfunction. No left ventricle thrombus noted on this study. There is no ventricular septal defect visualized. There is no left ventricular aneurysm. There is no mass noted in the left ventricle. RIGHT VENTRICLE The right ventricle is normal size. There is normal right ventricular wall thickness. The right ventricular systolic function is normal. AORTIC VALVE The aortic valve is thickened but opens well. No aortic regurgitation is present. There is no aortic valvular stenosis. There is no aortic valvular vegetation. MITRAL VALVE The mitral valve is thickened but opens well. Mitral regurgitation is trace. There is no mitral valve stenosis. There is no evidence of mitral valve prolapse. TRICUSPID VALVE The tricuspid valve leaflets are thickened , but open well. There is trace tricuspid regurgitation.RVSP-25 mof hg. There is no tricuspid valve stenosis. There is no tricuspid valve prolapse or vegetation. PULMONIC VALVE not well visulazied ,probably normal. There is no pulmonic valvular stenosis. GREAT VESSELS The aortic root is normal in size. The ascending aorta is normal in size. The pulmonary artery is normal. The IVC is normal in size and collapses >50% with inspiration. PERICARDIAL EFFUSION There is no pleural effusion. There is no pericardial effusion. <Conclusion> Normal chamber Size, LVH, EF-35-40%. Trace MR/Tr RVSP-26 mmof hg. The IVC is normal in size and collapses >50% with inspiration. There is no pericardial effusion. S/p Ant Wall STEMI, S/p Multi vessel PTCA.
--- NOTE | 2017-11-26 19:45 | HP ---
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 Patient had several episodes of chest and back pain over the last 3 to 4 weeks, all resolved spontaneously. Patient had an episode of back pain radiating to both arms and the chest with nausea, vomiting and diaphoresis, starting about 3:00 in the morning. Patient called EMS at 05:00 in a.m., was brought to the ER, was found to be having acute myocardial infarction, was taken to the entry level lab technician by Dr. Murry. Patient is found to have three-vessel disease, had stenting of the LAD and circumflex artery done. Patient is seen back in the Intensive Care Unit, 128, bed 7, in the CCU. PHYSICAL EXAMINATION: GENERAL: The patient is stable. Awake, alert, and oriented x3. CHEST: Clear to auscultation and percussion. HEART: Regular sinus rhythm. NEUROLOGIC: Sensation grossly intact. EXTREMITIES: No cyanosis, clubbing or edema. Pulses are intact. IMPRESSION: This is a 67-year-old white female with history of tobacco abuse, chronic obstructive pulmonary disease, hypertension, hypercholesterolemia, presenting with acute myocardial infarction with three-vessel disease. Benjamin Banegas MD
[2017-11-27 06:42] LABS: BASO # 0.03 K/mm3 (0.0-2.0); BASO % 0.2 % (0.0-3.0); EOS # 0.1 (0.0-0.7); EOS % 0.5 % (1.5-5.0); GRAN # 11.84 (1.4-6.5); HEMOGLOBIN 14.7 g/dL (12.0-16.0); LYMPH # 3.8 (1.2-3.4); MEAN CELL VOLUME 88.4 fl (80.0-105.0); MEAN CORPUSCULAR HEMOGLOBIN 29.9 pg (25.0-35.0); MEAN CORPUSCULAR HGB CONC 33.9 g/dl (31.0-37.0); MEAN PLATELET VOLUME 10.5 fl (7.0-11.0); MONO # 0.9 (0.1-0.6); MONO % 5.3 % (1.0-6.0); RBC 4.91 10^6/uL (3.5-6.1); RED CELL DISTRIBUTION WIDTH 14.1 % (11.5-14.5); WHITE BLOOD COUNT 16.7 10^3/ul (4.5-11.0)
[2017-11-27 08:00] LABS: ALBUMIN 4.1 g/dL (3.0-4.8); ALT/SGPT 42 U/L (7-56); AST/SGOT 176 U/L (14-36); BLOOD UREA NITROGEN 22 mg/dL (7-21); CALCIUM 9.3 mg/dL (8.4-10.5); GFR AFRICAN-AMERICAN > 60; GFR NON-AFRICAN AMERICAN 55
--- NOTE | 2017-11-27 08:08 | CON ---
Copied To: Jostin Murry MD Attending MD: Jostin Murry MD DATE: 11/26/2017 REASON FOR CONSULTATION: Acute code STEMI. REFERRING PHYSICIAN: Benjamin Banegas MD. BRIEF CLINICAL HISTORY: This is a 67-year-old female with active tobacco abuse, history of hypertension, who was playing computer and suddenly had the chest pain, so she came to the emergency room, found to have ST elevation in the anterior lead. Code STEMI was activated. Heparin was given. Brilinta was given. Risks, benefits and alternatives talked to the patient. The patient agreed to proceed with cardiac catheterization. PAST MEDICAL HISTORY: Significant for chest pain off and on, history of hypertension and active tobacco abuse. SOCIAL HISTORY: Active tobacco use. Denies any history of alcohol abuse. FAMILY HISTORY: Significant for coronary artery disease. Other brothers and sisters have coronary artery disease. CURRENT MEDICATIONS: The patient was taking amlodipine and valsartan, Exforge daily. REVIEW OF SYSTEMS: As per HPI. PHYSICAL EXAMINATION: VITAL SIGNS: Temperature afebrile, heart rate 82, blood pressure 132/78. HEENT: PERRLA. Extraocular movements intact. NECK: Supple. No carotid bruits or thyromegaly. CHEST: Clear to auscultation. HEART: S1 and S2 regular. ABDOMEN: Soft. EXTREMITIES: Clubbing and cyanosis negative. LABORATORY DATA: Blood workup as follows: WBC 6.1, hemoglobin 15.1, hematocrit 44.8, platelet count 494. Chemistry shows sodium 140, potassium 3.5, chloride 105, carbon dioxide of 22, anion gap of 18, BUN 19, creatinine 1. Troponin 0.5. EKG shows anterior wall [place]. IMPRESSION: Acute anterior wall myocardial infarction, coronary artery disease, active tobacco abuse. Risks, benefits and alternatives talked to the patient. The patient agreed to proceed with cardiac catheterization. Further recommendations after cardiac catheterization. We will follow with you. Thank you, Dr. Banegas, for providing us the opportunity in taking care of the patient, Ailyn العراقي. Jostin Murry MD
[2017-11-27 08:24] LABS: CK MB% 5.8 % (2.5-3.0); CK-MB 38.6 ng/mL (0.0-3.6)
--- NOTE | 2017-11-27 08:43 | PN ---
Copied To: Benjamin Banegas MD Attending MD: Benjamin Banegas MD DATE: 11/27/2017 LOCATION: Seen in the ICU. SUBJECTIVE: A 67-year-old white female, admitted to the hospital with acute myocardial infarction, was taken to the civil laboratory technician, had stenting of the LAD and the left circumflex. LAD was 100% occluded. The patient does have right coronary artery disease, which will need to be attended to at a later date. The patient did have an ejection fraction of only 35%. She is well without chest pain, without shortness of breath. No diaphoresis this morning. No nausea or vomiting. The patient is tolerating her medications well. She is in bed. Her pulse is good in the right leg. Her groin is ecchymotic, but stable. Chest is clear to auscultation. Cardiovascular examination regular sinus rhythm. IMPRESSION: Acute myocardial infarction, coronary artery disease, status post stenting in a 67-year-old white female with a long history of tobacco abuse and hypercholesterolemia and hypertension. Vital signs are stable. The blood pressure is 112/74. Laboratory data unremarkable. Elevated white count of 16,700, status post stent. Benjamin Banegas MD
[2017-11-27] MEDS: Lidocaine 5% Patch TD SCH (09:11)
--- NOTE | 2017-11-27 09:14 | CARD ---
APPROVED REPORT Date of service: 11/27/2017 EKG Measurement Heart [id number] [place] 146P51 [id number] <Conclusion> Normal sinus rhythm Low voltage QRS Anterolateral infarct, age undetermined Prolonged QT Abnormal ECG
[2017-11-27] MEDS ORDERED: Potassium Chloride 20 mEq ER Tab PO ONE (10:10)
[2017-11-27] MEDS: Magnesium Oxide 400 mg Tab UD PO SCH ×2 (10:38→17:49)
--- NOTE | 2017-11-27 12:44 | CP.CCUPN ---
<Rubén Hanson - Last Filed: 11/27/17 12:40> CCU Subjective - Physician Review Events Since Last Encounter (Free Text): 11/27/17 12:40 Patient seen and examined at bedside with no acute overnight events. Patient tolerating po diet well. Denies any acute complaints - but does have pain at the insertion site when palpated. CCU Objective - Vital Signs / Intake & Output Vital Signs (Last 4 hours): Vital Signs Temp Pulse BP 11/27/17 09:13 85 102/58 L 11/27/17 09:12 85 102/68 11/27/17 09:04 97.3 F L Intake and Output (Last 8hrs): Intake & Output 11/26/17 11/27/17 11/27/17 22:59 06:59 14:59 Intake Total 708 362 Output Total 1360 300 Balance -652 62 Intake: IV 108 112 Right Hand 108 integrilin 112 Oral 600 250 Output: Urine 1360 300 Urine, Voided 1360 300 - Physical Exam Head: Positive for: Atraumatic, Normocephalic Pupils: Positive for: PERRL Extroacular Muscles: Positive for: EOMI Conjunctiva: Positive for: Normal Mouth: Positive for: Moist Mucous Membranes Neck: Positive for: Normal Range of Motion. Negative for: Meningeal Signs, MIDLINE TENDERNESS, Paraspinal Tenderness Respiratory/Chest: Positive for: Clear to Auscultation, Good Air Exchange. Negative for: Respiratory Distress, Accessory Muscle Use Cardiovascular: Positive for: Regular Rate and Rhythm, Normal S1, S2. Negative for: Murmurs Abdomen: Negative for: Tenderness, Distention, Peritoneal Signs Back: Positive for: Normal Inspection. Negative for: CVA Tenderness, Midline Tenderness, Paraspinal Tenderness Upper Extremity: Positive for: Normal Inspection. Negative for: Cyanosis, Edema Lower Extremity: Positive for: Normal Inspection. Negative for: Edema Neurological: Positive for: GCS=15, CN II-XII Intact, Speech Normal Skin: Positive for: Warm, Dry, Normal Color. Negative for: Rashes Psychiatric: Positive for: Alert, Oriented x 3, Normal Insight, Normal Concentration - Medications Active Medications: Active Medications Generic Name Dose Route Start Last Admin Trade Name Freq PRN Reason Stop Dose Admin Aspirin 81 mg 11/27/17 10:00 11/27/17 09:12 Ecotrin PO 81 mg DAILY JESSICA Administration Atorvastatin Calcium 80 mg 11/26/17 17:00 11/26/17 17:28 Lipitor PO 80 mg DIN JESSICA Administration Furosemide 40 mg 11/26/17 10:00 11/27/17 09:13 Lasix PO 40 mg DAILY JESSICA Administration Lidocaine 1 ea 11/26/17 10:00 11/27/17 09:11 Lidoderm TD 1 ea DAILY JESSICA Administration Lisinopril 2.5 mg 11/28/17 10:00 Zestril PO DAILY JESSICA Magnesium Oxide 400 mg 11/27/17 10:15 Mag-Ox PO 11/28/17 23:59 BID JESSICA Metoprolol Tartrate 25 mg 11/26/17 10:00 11/27/17 09:13 Lopressor PO 25 mg BID JESSICA Administration Nicotine 1 patch 11/26/17 10:00 11/27/17 09:10 Nicoderm Cq TD 1 patch DAILY JESSICA Administration Spironolactone 25 mg 11/26/17 10:00 11/27/17 09:12 Aldactone PO 25 mg DAILY JESSICA Administration Ticagrelor 90 mg 11/26/17 18:00 11/27/17 09:12 Brilinta PO 90 mg BID JESSICA Administration - Patient Studies Lab Studies: Microbiology Studies 11/26/17 08:26 MRSA Culture (Admit) - Final Naris MRSA NOT DETECTED Lab Studies 11/27/17 11/27/17 11/27/17 Range/Units 05:30 05:30 05:30 WBC (4.5-11.0) 10^3/ul RBC (3.5-6.1) 10^6/uL Hgb (12.0-16.0) g/dL Hct (36.0-48.0) % MCV (80.0-105.0) fl MCH (25.0-35.0) pg MCHC (31.0-37.0) g/dl RDW (11.5-14.5) % Plt Count (120.0-450.0) 10^3/uL MPV (7.0-11.0) fl Gran % (50.0-68.0) % Lymph % (Auto) (22.0-35.0) % [place] % (Auto) (1.0-6.0) % Eos % (Auto) (1.5-5.0) % Baso % (Auto) (0.0-3.0) % Gran # (1.4-6.5) Lymph # (Auto) (1.2-3.4) [place] # (Auto) (0.1-0.6) Eos # (Auto) (0.0-0.7) Baso # (Auto) (0.0-2.0) K/mm3 Sodium 142 (132-148) mmol/L Potassium 3.8 (3.6-5.0) mmol/L Chloride 106 (98-107) mmol/L Carbon Dioxide 27 (21-33) mmol/L Anion Gap 13 (10-20) BUN 22 H (7-21) mg/dL Creatinine 1.0 (0.7-1.2) mg/dl Est GFR ( Amer) > 60 Est GFR (Non-Af Amer) 55 Random Glucose 113 H (70-110) mg/dL Hemoglobin A1c 5.7 (4.2-6.5) % Calcium 9.3 (8.4-10.5) mg/dL Phosphorus 2.7 (2.5-4.5) mg/dL Magnesium 1.9 (1.7-2.2) mg/dL Total Bilirubin 1.2 (0.2-1.3) mg/dL AST 176 H D (14-36) U/L ALT 42 (7-56) U/L Alkaline Phosphatase 86 (38-126) U/L Lactate Dehydrogenase 1436 H (333-699) U/L Total Creatine Kinase 669 H (35-230) U/L CK-MB (CK-2) 38.6 H (0.0-3.6) ng/mL CK-MB (CK-2) % 5.8 H (2.5-3.0) % Troponin I 28.30 H* D ng/mL Total Protein 8.1 (5.8-8.3) g/dL Albumin 4.1 (3.0-4.8) g/dL Globulin 4.0 gm/dL Albumin/Globulin Ratio 1.0 L (1.1-1.8) TSH 3rd Generation 0.49 (0.46-4.68) mIU/mL 11/27/17 11/26/17 11/26/17 Range/Units 05:30 12:45 12:45 WBC 16.7 H 18.1 H (4.5-11.0) 10^3/ul RBC 4.91 4.80 (3.5-6.1) 10^6/uL Hgb 14.7 14.5 (12.0-16.0) g/dL Hct 43.4 42.5 (36.0-48.0) % MCV 88.4 88.5 (80.0-105.0) fl MCH 29.9 30.2 (25.0-35.0) pg MCHC 33.9 34.1 (31.0-37.0) g/dl RDW 14.1 14.0 (11.5-14.5) % Plt Count 468 H 482 H (120.0-450.0) 10^3/uL MPV 10.5 10.0 (7.0-11.0) fl Gran % 71.0 H 80.0 H (50.0-68.0) % Lymph % (Auto) 23.0 13.6 L (22.0-35.0) % Duc[place]ne % (Auto) 5.3 6.1 H (1.0-6.0) % Eos % (Auto) 0.5 L 0.1 L (1.5-5.0) % Baso % (Auto) 0.2 0.2 (0.0-3.0) % Gran # 11.84 H 14.50 H (1.4-6.5) Lymph # (Auto) 3.8 H 2.5 (1.2-3.4) [place]ne # (Auto) 0.9 H 1.1 H (0.1-0.6) Eos # (Auto) 0.1 0.0 (0.0-0.7) Baso # (Auto) 0.03 0.04 (0.0-2.0) K/mm3 Sodium 143 (132-148) mmol/L Potassium 4.3 (3.6-5.0) mmol/L Chloride 102 (98-107) mmol/L Carbon Dioxide 29 (21-33) mmol/L Anion Gap 16 (10-20) BUN 19 (7-21) mg/dL Creatinine 0.9 (0.7-1.2) mg/dl Est GFR ( Amer) > 60 Est GFR (Non-Af Amer) > 60 Random Glucose 107 (70-110) mg/dL Hemoglobin A1c (4.2-6.5) % Calcium 9.3 (8.4-10.5) mg/dL Phosphorus (2.5-4.5) mg/dL Magnesium (1.7-2.2) mg/dL Total Bilirubin (0.2-1.3) mg/dL AST (14-36) U/L ALT (7-56) U/L Alkaline Phosphatase (38-126) U/L Lactate Dehydrogenase 1136 H (333-699) U/L Total Creatine Kinase 1571 H (35-230) U/L CK-MB (CK-2) 163.0 H (0.0-3.6) ng/mL CK-MB (CK-2) % 10.4 H (2.5-3.0) % Troponin I 92.30 H* D ng/mL Total Protein (5.8-8.3) g/dL Albumin (3.0-4.8) g/dL Globulin gm/dL Albumin/Globulin Ratio (1.1-1.8) TSH 3rd Generation (0.46-4.68) mIU/mL Laboratory Results - last 24 hr 11/26/17 11/26/17 11/27/17 12:45 12:45 05:30 WBC 18.1 H 16.7 H RBC 4.80 4.91 Hgb 14.5 14.7 Hct 42.5 43.4 MCV 88.5 88.4 MCH 30.2 29.9 MCHC 34.1 33.9 RDW 14.0 14.1 Plt Count 482 H 468 H MPV 10.0 10.5 Gran % 80.0 H 71.0 H Lymph % (Auto) 13.6 L 23.0 Duc[place]ne % (Auto) 6.1 H 5.3 Eos % (Auto) 0.1 L 0.5 L Baso % (Auto) 0.2 0.2 Gran # 14.50 H 11.84 H Lymph # (Auto) 2.5 3.8 H [place]ne # (Auto) 1.1 H 0.9 H Eos # (Auto) 0.0 0.1 Baso # (Auto) 0.04 0.03 Sodium 143 Potassium 4.3 Chloride 102 Carbon Dioxide 29 Anion Gap 16 BUN 19 Creatinine 0.9 Est GFR ( Amer) > 60 Est GFR (Non-Af Amer) > 60 Random Glucose 107 Hemoglobin A1c Calcium 9.3 Phosphorus Magnesium Total Bilirubin AST ALT Alkaline Phosphatase Lactate Dehydrogenase 1136 H Total Creatine Kinase 1571 H CK-MB (CK-2) 163.0 H CK-MB (CK-2) % 10.4 H Troponin I 92.30 H* D Total Protein Albumin Globulin Albumin/Globulin Ratio TSH 3rd Generation 11/27/17 11/27/17 11/27/17 05:30 05:30 05:30 WBC RBC Hgb Hct MCV MCH MCHC RDW Plt Count MPV Gran % Lymph % (Auto) [place]ne % (Auto) Eos % (Auto) Baso % (Auto) Gran # Lymph # (Auto) [place]ne # (Auto) Eos # (Auto) Baso # (Auto) Sodium 142 Potassium 3.8 Chloride 106 Carbon Dioxide 27 Anion Gap 13 BUN 22 H Creatinine 1.0 Est GFR ( Amer) > 60 Est GFR (Non-Af Amer) 55 Random Glucose 113 H Hemoglobin A1c 5.7 Calcium 9.3 Phosphorus 2.7 Magnesium 1.9 Total Bilirubin 1.2 AST 176 H D ALT 42 Alkaline Phosphatase 86 Lactate Dehydrogenase 1436 H Total Creatine Kinase 669 H CK-MB (CK-2) 38.6 H CK-MB (CK-2) % 5.8 H Troponin I 28.30 H* D Total Protein 8.1 Albumin 4.1 Globulin 4.0 Albumin/Globulin Ratio 1.0 L TSH 3rd Generation 0.49 EKG/Cardiology Studies: Cardiology / EKG Studies 11/27/17 08:00 ELECTROCARDIOGRAM DAILY Comment: Reason For Exam: chest pain 11/27/17 08:15 ELECTROCARDIOGRAM DAILY Comment: Reason For Exam: chest pain 11/28/17 08:00 ELECTROCARDIOGRAM DAILY Comment: Reason For Exam: chest pain Critical Care Progress Note - Nutrition Nutrition: Nutrition Category Date Time Status Heart Healthy Diet [DIET] Diets 11/26/17 Breakfast Active Assessment/Plan - Assessment and Plan (Free Text) Assessment: 67 year old female under ICU mgmt for post-catheterization monitoring 1. Acute NSTEMI 2. Acute Hematoma at cath insertion site 3. Hx tobacco abuse 4. Anxiety Plan Neuro - Maintain normothermia - Continue home dose alprazolam for anxiety Pulm - Nasal cannula 2L PRN for SOB - Maintain sat O2 > 92% Cardio - Continue with SAMIA-I, B-Blockers, Statin, DAPT; Integrillin drip was discontinued 18 hours after procedure - HHD - Maintain MAP > 65 - Assess pulses, cath site, and vitals as per orders - complete GI - Continue with HHD - Continue with GI PPX - Maintain euvolemia ID - No ABx needed at this time Endo - Maintain euglycemia Heme - Leave DVT PPX up to cardiology - Small hematoma at cath site - please monitor CBC well Dispo: At this time, patient stable for transfer to telemetry <Jason Rivas - Last Filed: 11/27/17 13:44> CCU Objective - Vital Signs / Intake & Output Intake and Output (Last 8hrs): Intake & Output 11/26/17 11/27/17 11/27/17 22:59 06:59 14:59 Intake Total 708 362 Output Total 1360 300 Balance -652 62 Intake: IV 108 112 Right Hand 108 integrilin 112 Oral 600 250 Output: Urine 1360 300 Urine, Voided 1360 300 - Medications Active Medications: Active Medications Generic Name Dose Route Start Last Admin Trade Name Freq PRN Reason Stop Dose Admin Aspirin 81 mg 11/27/17 10:00 11/27/17 09:12 Ecotrin PO 81 mg DAILY JESSICA Administration Atorvastatin Calcium 80 mg 11/26/17 17:00 11/26/17 17:28 Lipitor PO 80 mg DIN JESSICA Administration Furosemide 40 mg 11/26/17 10:00 11/27/17 09:13 Lasix PO 40 mg DAILY JESSICA Administration Lidocaine 1 ea 11/26/17 10:00 11/27/17 09:11 Lidoderm TD 1 ea DAILY JESSICA Administration Lisinopril 2.5 mg 11/28/17 10:00 Zestril PO DAILY JESSICA Magnesium Oxide 400 mg 11/27/17 10:15 Mag-Ox PO 11/28/17 23:59 BID JESSICA Metoprolol Tartrate 25 mg 11/26/17 10:00 11/27/17 09:13 Lopressor PO 25 mg BID JESSICA Administration Nicotine 1 patch 11/26/17 10:00 11/27/17 09:10 Nicoderm Cq TD 1 patch DAILY JESSICA Administration Spironolactone 25 mg 11/26/17 10:00 11/27/17 09:12 Aldactone PO 25 mg DAILY JESSICA Administration Ticagrelor 90 mg 11/26/17 18:00 11/27/17 09:12 Brilinta PO 90 mg BID JESSICA Administration - Patient Studies Lab Studies: Microbiology Studies 11/26/17 08:26 MRSA Culture (Admit) - Final Naris MRSA NOT DETECTED Lab Studies 11/27/17 11/27/17 11/27/17 Range/Units 05:30 05:30 05:30 WBC (4.5-11.0) 10^3/ul RBC (3.5-6.1) 10^6/uL Hgb (12.0-16.0) g/dL Hct (36.0-48.0) % MCV (80.0-105.0) fl MCH (25.0-35.0) pg MCHC (31.0-37.0) g/dl RDW (11.5-14.5) % Plt Count (120.0-450.0) 10^3/uL MPV (7.0-11.0) fl Gran % (50.0-68.0) % Lymph % (Auto) (22.0-35.0) % [place]ne % (Auto) (1.0-6.0) % Eos % (Auto) (1.5-5.0) % Baso % (Auto) (0.0-3.0) % Gran # (1.4-6.5) Lymph # (Auto) (1.2-3.4) [place]ne # (Auto) (0.1-0.6) Eos # (Auto) (0.0-0.7) Baso # (Auto) (0.0-2.0) K/mm3 Sodium 142 (132-148) mmol/L Potassium 3.8 (3.6-5.0) mmol/L Chloride 106 (98-107) mmol/L Carbon Dioxide 27 (21-33) mmol/L Anion Gap 13 (10-20) BUN 22 H (7-21) mg/dL Creatinine 1.0 (0.7-1.2) mg/dl Est GFR ( Amer) > 60 Est GFR (Non-Af Amer) 55 Random Glucose 113 H (70-110) mg/dL Hemoglobin A1c 5.7 (4.2-6.5) % Calcium 9.3 (8.4-10.5) mg/dL Phosphorus 2.7 (2.5-4.5) mg/dL Magnesium 1.9 (1.7-2.2) mg/dL Total Bilirubin 1.2 (0.2-1.3) mg/dL AST 176 H D (14-36) U/L ALT 42 (7-56) U/L Alkaline Phosphatase 86 (38-126) U/L Lactate Dehydrogenase 1436 H (333-699) U/L Total Creatine Kinase 669 H (35-230) U/L CK-MB (CK-2) 38.6 H (0.0-3.6) ng/mL CK-MB (CK-2) % 5.8 H (2.5-3.0) % Troponin I 28.30 H* D ng/mL Total Protein 8.1 (5.8-8.3) g/dL Albumin 4.1 (3.0-4.8) g/dL Globulin 4.0 gm/dL Albumin/Globulin Ratio 1.0 L (1.1-1.8) TSH 3rd Generation 0.49 (0.46-4.68) mIU/mL 11/27/17 Range/Units 05:30 WBC 16.7 H (4.5-11.0) 10^3/ul RBC 4.91 (3.5-6.1) 10^6/uL Hgb 14.7 (12.0-16.0) g/dL Hct 43.4 (36.0-48.0) % MCV 88.4 (80.0-105.0) fl MCH 29.9 (25.0-35.0) pg MCHC 33.9 (31.0-37.0) g/dl RDW 14.1 (11.5-14.5) % Plt Count 468 H (120.0-450.0) 10^3/uL MPV 10.5 (7.0-11.0) fl Gran % 71.0 H (50.0-68.0) % Lymph % (Auto) 23.0 (22.0-35.0) % [place] % (Auto) 5.3 (1.0-6.0) % Eos % (Auto) 0.5 L (1.5-5.0) % Baso % (Auto) 0.2 (0.0-3.0) % Gran # 11.84 H (1.4-6.5) Lymph # (Auto) 3.8 H (1.2-3.4) [place]ne # (Auto) 0.9 H (0.1-0.6) Eos # (Auto) 0.1 (0.0-0.7) Baso # (Auto) 0.03 (0.0-2.0) K/mm3 Sodium (132-148) mmol/L Potassium (3.6-5.0) mmol/L Chloride (98-107) mmol/L Carbon Dioxide (21-33) mmol/L Anion Gap (10-20) BUN (7-21) mg/dL Creatinine (0.7-1.2) mg/dl Est GFR ( Amer) Est GFR (Non-Af Amer) Random Glucose (70-110) mg/dL Hemoglobin A1c (4.2-6.5) % Calcium (8.4-10.5) mg/dL Phosphorus (2.5-4.5) mg/dL Magnesium (1.7-2.2) mg/dL Total Bilirubin (0.2-1.3) mg/dL AST (14-36) U/L ALT (7-56) U/L Alkaline Phosphatase (38-126) U/L Lactate Dehydrogenase (333-699) U/L Total Creatine Kinase (35-230) U/L CK-MB (CK-2) (0.0-3.6) ng/mL CK-MB (CK-2) % (2.5-3.0) % Troponin I ng/mL Total Protein (5.8-8.3) g/dL Albumin (3.0-4.8) g/dL Globulin gm/dL Albumin/Globulin Ratio (1.1-1.8) TSH 3rd Generation (0.46-4.68) mIU/mL Laboratory Results - last 24 hr 11/27/17 11/27/17 11/27/17 05:30 05:30 05:30 WBC 16.7 H RBC 4.91 Hgb 14.7 Hct 43.4 MCV 88.4 MCH 29.9 MCHC 33.9 RDW 14.1 Plt Count 468 H MPV 10.5 Gran % 71.0 H Lymph % (Auto) 23.0 [place]ne % (Auto) 5.3 Eos % (Auto) 0.5 L Baso % (Auto) 0.2 Gran # 11.84 H Lymph # (Auto) 3.8 H [place]ne # (Auto) 0.9 H Eos # (Auto) 0.1 Baso # (Auto) 0.03 Sodium 142 Potassium 3.8 Chloride 106 Carbon Dioxide 27 Anion Gap 13 BUN 22 H Creatinine 1.0 Est GFR ( Amer) > 60 Est GFR (Non-Af Amer) 55 Random Glucose 113 H Hemoglobin A1c 5.7 Calcium 9.3 Phosphorus 2.7 Magnesium 1.9 Total Bilirubin 1.2 AST 176 H D ALT 42 Alkaline Phosphatase 86 Lactate Dehydrogenase 1436 H Total Creatine Kinase 669 H CK-MB (CK-2) 38.6 H CK-MB (CK-2) % 5.8 H Troponin I 28.30 H* D Total Protein 8.1 Albumin 4.1 Globulin 4.0 Albumin/Globulin Ratio 1.0 L TSH 3rd Generation 11/27/17 05:30 WBC RBC Hgb Hct MCV MCH MCHC RDW Plt Count MPV Gran % Lymph % (Auto) [place]ne % (Auto) Eos % (Auto) Baso % (Auto) Gran # Lymph # (Auto) [place] # (Auto) Eos # (Auto) Baso # (Auto) Sodium Potassium Chloride Carbon Dioxide Anion Gap BUN Creatinine Est GFR ( Amer) Est GFR (Non-Af Amer) Random Glucose Hemoglobin A1c Calcium Phosphorus Magnesium Total Bilirubin AST ALT Alkaline Phosphatase Lactate Dehydrogenase Total Creatine Kinase CK-MB (CK-2) CK-MB (CK-2) % Troponin I Total Protein Albumin Globulin Albumin/Globulin Ratio TSH 3rd Generation 0.49 EKG/Cardiology Studies: Cardiology / EKG Studies 11/27/17 08:15 ELECTROCARDIOGRAM DAILY Comment: Reason For Exam: chest pain 11/28/17 08:00 ELECTROCARDIOGRAM DAILY Comment: Reason For Exam: chest pain Critical Care Progress Note - Nutrition Nutrition: Nutrition Category Date Time Status Heart Healthy Diet [DIET] Diets 11/26/17 Breakfast Active Addendum Addendum: 11/27/17 13:41 ICU Attending Addendum: 67F with STEMi s/p stents x 2 (Lad and LCx). Hemodynamically stable. -hemodynamic monitoring to maintain MAP>65 -f\u ECho; -continue ACS medications (Asa, Brilinta, Statin , BBlocker and SAMIA) as per cardiology team -PO diet (cardiac ) and aspiration precautions -LE pulse checks -DVT \ PUD prophylaxis -Smoking cessation guidance Ok to transfer out of MICU Rest of care as noted above. Jason Rivas MD Bartender Manager 11/27/17 13:43
--- NOTE | 2017-11-27 16:10 | PN ---
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 SUBJECTIVE: Patient denies any chest pain, shortness of breath or any palpitation. OBJECTIVE: GENERAL: Not in apparent distress. VITAL SIGNS: Temperature afebrile, heart rate 85, blood pressure 102/58. HEENT: PERRLA. Extraocular muscles intact. NECK: Supple. No carotid bruit or thyromegaly. CHEST: Clear to auscultation. HEART: S1 and S2 regular. ABDOMEN: Soft. EXTREMITIES: Clubbing and cyanosis negative. Right femoral area appear good. No hematoma. No bleeding. LABORATORY DATA: Blood workup: WBC 16.7, hemoglobin 14.7, hematocrit 43.4, platelet count 468. Chemistry shows sodium 140, potassium 3, chloride 106, carbon dioxide 27, anion gap of 13, BUN 22, creatinine 1. Troponin trend down to 28.3. AST 176. TSH 0.46. Total triglycerides 237, total cholesterol 322, LDL 230, HDL 41. IMPRESSION: Acute anterior wall myocardial infarction; multivessel coronary artery disease, status post percutaneous transluminal coronary angioplasty of left anterior descending and proximal circumflex, right coronary ostium chronic total occlusion, ischemic cardiomyopathy with ejection fraction 30%, elevated end-diastolic pressure. RECOMMENDATIONS: Supplement electrolytes as needed. We will supplement magnesium and potassium. Continue low-dose beta-mariana as blood pressure is tolerated. Continue low dose of SAMIA inhibitors, cut down to 1.25 mg daily, 2.5 mg from today. Discontinue 10 mg because of low blood pressure. Continue gentle p.o. Lasix because of elevated end-diastolic pressure. Supplement potassium. Continue spironolactone and we will get MUGA scan to see LV function. Yesterday's echo shows ejection fraction around 35%. We will follow with you. Thank you, Dr. Banegas, for providing us the opportunity in taking care of patient, Ailyn العراقي. Jostin Murry MD
[2017-11-28 00:31] VITALS: O2SAT 97
[2017-11-28 06:51] VITALS: RESP 19; TEMP 98.5
[2017-11-28 07:07] LABS: BASO # 0.06 K/mm3 (0.0-2.0); BASO % 0.3 % (0.0-3.0); EOS # 0.2 (0.0-0.7); GRAN # 13.89 (1.4-6.5); GRAN % 75.3 % (50.0-68.0); HEMOGLOBIN 14.4 g/dL (12.0-16.0); LYMPH # 3.1 (1.2-3.4); LYMPH % 16.5 % (22.0-35.0); MEAN CELL VOLUME 88.8 fl (80.0-105.0); MEAN CORPUSCULAR HEMOGLOBIN 29.9 pg (25.0-35.0); MEAN CORPUSCULAR HGB CONC 33.6 g/dl (31.0-37.0); MEAN PLATELET VOLUME 10.4 fl (7.0-11.0); MONO # 1.3 (0.1-0.6); MONO % 6.9 % (1.0-6.0); RBC 4.82 10^6/uL (3.5-6.1); WHITE BLOOD COUNT 18.5 10^3/ul (4.5-11.0)
--- NOTE | 2017-11-28 07:21 | CP.PCM.PN ---
Subjective - Date & Time of Evaluation Date of Evaluation: 11/28/17 Time of Evaluation: 06:30 - Subjective Subjective: Awake,Denies chest pain, denies shortness of breath Reason for consultation and follow up: Cardiac evaluation of chest pain,acute STEMI, post PTCA Seen and examined by me and Dr. Murry Objective - Vital Signs/Intake and Output Vital Signs (last 24 hours): Temp Pulse Resp BP Pulse Ox 98.5 F 65 19 96/60 L 97 11/28/17 06:00 11/28/17 06:00 11/28/17 06:00 11/28/17 06:00 11/28/17 06:00 Intake and Output: 11/28/17 11/28/17 06:59 18:59 Intake Total 240 Balance 240 - Medications Medications: Current Medications Acetaminophen (Tylenol 325mg Tab) 650 mg PO Q4 PRN PRN Reason: Headache Last Admin: 11/28/17 04:13 Dose: 650 mg Aspirin (Ecotrin) 81 mg PO DAILY [facility] Last Admin: 11/27/17 09:12 Dose: 81 mg Atorvastatin Calcium (Lipitor) 80 mg PO DIN [facility] Last Admin: 11/27/17 17:41 Dose: 80 mg Furosemide (Lasix) 40 mg PO DAILY [facility] Last Admin: 11/27/17 09:13 Dose: 40 mg Lidocaine (Lidoderm) 1 ea TD DAILY [facility] Last Admin: 11/27/17 09:11 Dose: 1 ea Lisinopril (Zestril) 2.5 mg PO DAILY [facility] Magnesium Oxide (Mag-Ox) 400 mg PO BID [facility] Stop: 11/28/17 23:59 Last Admin: 11/27/17 17:49 Dose: 400 mg Metoprolol Tartrate (Lopressor) 25 mg PO BID [facility] Last Admin: 11/27/17 17:42 Dose: 25 mg Nicotine (Nicoderm Cq) 1 patch TD DAILY [facility] Last Admin: 11/27/17 09:10 Dose: 1 patch Spironolactone (Aldactone) 25 mg PO DAILY [facility] Last Admin: 11/27/17 09:12 Dose: 25 mg Ticagrelor (Brilinta) 90 mg PO BID [facility] Last Admin: 11/27/17 17:47 Dose: 90 mg - Labs Labs: 11/28/17 06:30 11/27/17 05:30 PT 11.3 SECONDS (9.4-12.5) 11/26/17 06:17 INR 0.98 11/26/17 06:17 APTT 29.0 Seconds (25.1-36.5) 11/26/17 06:17 - Constitutional Appears: No Acute Distress - Eye Exam Eye Exam: Normal appearance - ENT Exam ENT Exam: Mucous Membranes Moist - Respiratory Exam Respiratory Exam: Decreased Breath Sounds, Clear to Ausculation Bilateral, NORMAL BREATHING PATTERN - Cardiovascular Exam Cardiovascular Exam: REGULAR RHYTHM, +S1, +S2 - GI/Abdominal Exam GI & Abdominal Exam: Soft, Normal Bowel Sounds - Extremities Exam Extremities Exam: Normal Capillary Refill Additional comments: right groin no hematoma, no bleeding - Neurological Exam Neurological Exam: Alert, Awake, Oriented x3 - Psychiatric Exam Psychiatric exam: Normal Affect - Skin Skin Exam: Dry, Intact, Warm Assessment and Plan - Assessment and Plan (Free Text) Assessment: A 67 year old female who was brought by EMS to the ER for severe chest pain.History of hypercholesterolemia, hypertension and tobacco abuse. In ER, found to be in acute STEMI. Code STEMI was initiated and she was brought to the labor relations specialist. PTCA of LAD( 100% 0ccluded) and proximal circumflex (90% occluded) was done. RCA totally occluded . Currently stable, denies chest pain, Plan: Episode of hypotension last night,asymptomatic Repeat SBP 90's Lisinopril decreased to 2.5 mg daily Will discontinue Lasix and Zaroxylyn Continue ASA and Brilinta Smoking cessation On Nicoderm patch Will follow up MUGA result Possible discharge today Continue current treatment Continue current medications Will follow up Plan and treatment discussed with Dr. uMrry
[2017-11-28 07:53] LABS: ALBUMIN 3.9 g/dL (3.0-4.8); CALCIUM 9.2 mg/dL (8.4-10.5); TROPONIN I 13.6 ng/mL
--- NOTE | 2017-11-28 09:54 | CARD ---
APPROVED REPORT Date of service: 11/28/2017 EKG Measurement Heart [id number] <Conclusion> Normal sinus rhythm Possible Left atrial enlargement Anterolateral infarct, age undetermined Prolonged QT Abnormal ECG
[2017-11-28] MEDS: Lidocaine 5% Patch TD SCH (09:57)
[2017-11-28] MEDS: Magnesium Oxide 400 mg Tab UD PO SCH (09:57)
[2017-11-28 10:01] VITALS: BP 98/60; PULSE 67
--- NOTE | 2017-11-28 21:31 | CARD ---
APPROVED REPORT Date of service: 11/28/2017 PROCEDURE The above named patient recieved 27.3 millicuries of Tc99m tagged red blood cells intravenously. Findings Calculated RV Ejection Fraction is 31 %. Findings Left Ventricle: The quality of the study is subpoptimal due to poor positioning. The left ventricle is mildly enlarged. The right ventricle is normal in size. Wall motion study shows moderate diffuse hypokinesis and paradoxical septal wall motion of the left ventricle. RV wall motion is normal. The right atrium is dynamic. The remainder of the study is unremarkable. Impressions Moderate LV dysfunction with diffuse hypokinesis and paradoxical septal wall motion. LVEF = 36%. Normal RV wall motion.
--- NOTE | 2017-11-29 02:52 | DS ---
Copied To: Benjamin Banegas MD Attending MD: Benjamin Banegas MD HISTORY OF PRESENT ILLNESS: A 67-year-old white female admitted on 11/26/2017, discharged on 11/28/2017. The patient was admitted with acute myocardial infarction, was found to have triple vessel disease. The patient had stent to the LAD and circumflex. Her ejection fraction is approximately 35%. She is doing well on Brilinta, atorvastatin, lisinopril, metoprolol tartrate, and aspirin. The patient will be discharged home on to follow up as an outpatient on Sunday. She will have a repeat echo as an outpatient to assess her left ventricular function and she will possibly have a further stenting done on the right coronary in the near future. FINAL DISCHARGE DIAGNOSES: The patient with hyperlipidemia, hypertension, positive tobacco abuse, acute myocardial infarction, coronary artery disease status post stent. Benjamin Banegas MD
== END 2017-11-28 16:47 | disposition home or self-care (01) | DRG 247 ==
LOC: ED 06:05 → ERH 06:33 → CCU 08:17 → 2RNO 11-27 19:28
PROVIDERS: ADMIT Internal Medicine; ATTEND Internal Medicine
PROC: 027136Z Dilation of Coronary Artery, Two Arteries with Three Drug-eluting Intraluminal Devices, Percutaneous Approach (ICD-10-PCS; principal; 2017-11-26)
PROC: 4A023N7 Measurement of Cardiac Sampling and Pressure, Left Heart, Percutaneous Approach (ICD-10-PCS; 2017-11-26)
PROC: B2111ZZ Fluoroscopy of Multiple Coronary Arteries using Low Osmolar Contrast (ICD-10-PCS; 2017-11-26)
PROC: B2151ZZ Fluoroscopy of Left Heart using Low Osmolar Contrast (ICD-10-PCS; 2017-11-26)
PROC: 3E033PZ Introduction of Platelet Inhibitor into Peripheral Vein, Percutaneous Approach (ICD-10-PCS; 2017-11-26)
DX: I21.02 ST elevation (STEMI) myocardial infarction involving left anterior descending coronary artery (principal); L76.32 Postprocedural hematoma of skin and subcutaneous tissue following other procedure; E78.00 Pure hypercholesterolemia, unspecified; E78.5 Hyperlipidemia, unspecified; F41.9 Anxiety disorder, unspecified; I10 Essential (primary) hypertension; I25.10 Atherosclerotic heart disease of native coronary artery without angina pectoris; I25.5 Ischemic cardiomyopathy; I25.82 Chronic total occlusion of coronary artery; J44.9 Chronic obstructive pulmonary disease, unspecified; Z72.0 Tobacco use; Z79.82 Long term (current) use of aspirin; Z82.49 Family history of ischemic heart disease and other diseases of the circulatory system; Z90.49 Acquired absence of other specified parts of digestive tract; Z90.81 Acquired absence of spleen; R40.2412 Glasgow coma scale score 13-15, at arrival to emergency department